=== PATIENT | male | born 1995 ===

== ENCOUNTER 2018-02-06 13:42 | Emergency (ER) | payer OTHER ==
[2018-02-06 13:58] VITALS: BP 139/84
--- NOTE | 2018-02-06 14:11 | UC ---
Head Injury HPI - HPI Summary HPI Summary: 22 yo male presents with head injury. He tells me that 3 days ago he was wrestling with his friends on the grass and was hit in the head a few times. No LOC. The next day he noticed that he had a slight headache, was easily irritable , and had trouble concentrating. He has been studying intently the last 2 days for an exam he had this morning, but his symptoms have persisted after the completion of his exam - prompting his visit to . He has not taken anything for his discomfort. Denies vision changes, dizziness, neck pain, numbness, tingling, trouble word finding, limb ataxia, SOB, chest pain, n/v. - History Of Current Complaint Chief Complaint: UCHeadInjury Stated Complaint: HEAD INJURY Time Seen by Provider: 02/06/18 14:10 Hx Obtained From: Patient Onset/Duration: Sudden Onset Severity Currently: None Pain Intensity: 0 Pain Scale Used: 0-10 Numeric - Allergies/Home Medications Allergies/Adverse Reactions: Allergies Allergy/AdvReac Type Severity Reaction Status Date / Time No Known Allergies Allergy Verified 02/06/18 13:58 Home Medications: Home Medications Ibuprofen TAB* [Advil TAB*] 600 mg PO ONCE PRN 02/06/18 [History Confirmed 02/06] Melatonin 1 mg PO BEDTIME PRN 02/06/18 [History Confirmed 02/06/18] PMH/Surg Hx/FS Hx/Imm Hx - Additional Past Medical History Additional PMH: None - Surgical History Surgical History: None - Family History Known Family History: Positive: None - Social History Occupation: Student Lives: Dormitory/Roommates Alcohol Use: Weekly Substance Use Type: None Smoking Status (MU): Never Smoked Tobacco Review of Systems All Other Systems Reviewed And Are Negative: Yes Constitutional: Positive: Negative Skin: Positive: Negative Eyes: Positive: Negative ENT: Positive: Negative Respiratory: Positive: Negative Cardiovascular: Positive: Negative Gastrointestinal: Positive: Negative Neurovascular: Positive: Negative Musculoskeletal: Positive: Negative Neurological: Positive: Headache Psychological: Positive: Negative Physical Exam - Summary Physical Exam Summary: GENERAL: NAD. WDWN. No pain distress. SKIN: No rashes, sores, ulcers, masses, lesions. HEENT: Head: AT/NC. No arriaza's sign or raccoon eyes. Eyes: PERRLA. EOM intact. Conjunctiva clear without inflammation or discharge. Ears: Hearing grossly normal. TMs intact, no bulging, erythema, or edema. NECK: Supple. Nontender. No lymphadenopathy. CHEST: CTAB. No r/r/w. No accessory muscle use. Breathing comfortably and in no distress. CV: RRR. Without m/r/g. Pulses intact. Brisk cap refill. ABDOMEN: Soft. NTTP. No distention or guarding. No CVA tenderness. Bowel sounds present MSK: FROM in B/L UEs and LEs with symmetric strength. NEURO: A&Ox3. 3 word recall, remote, recent memory, ability to follow 2-step directions, and attention intact. CN: II: Peripheral qiu intact. Vision normal. III, IV, : EOMI. No nystagmus. PERRLA. V: Sensations intact and symmetric. Opens mouth and clenches teeth. VII: No facial asymmetry. Forehead wrinkles. Grins, shuts eyes, frowns, puffs cheeks. VIII: Hearing intact to finger rub. IX, X: Swallows and coughs. Uvula midline. XI: Shrugs shoulders. Turns head against resistance. XII: No tongue deviation Kavrul-re-saeg are intact. Gait with normal base. Romberg: maintains balance, no pronator drift. Normal speech. No facial drooping. PSYCH: Age appropriate behavior. Triage Information Reviewed: Yes Vital Signs: Initial Vital Signs Temp 98.3 F 02/06/18 13:50 Pulse 72 02/06/18 13:50 Resp 14 02/06/18 13:50 BP 139/84 02/06/18 13:50 Pulse Ox 98 02/06/18 13:50 Vital Signs Reviewed: Yes Head Injury Course/Dx - Course Course Of Treatment: Discussed obtaining CT with pt. Will not get CT at this time as pt's exam is WNL and his injury was 3 days ago. Suspect mild concussion. Advised to refrain from activities that worsen his symptoms and practice mental and physical rest. If he develops an increasing headache, vision changes, n/v to go to the ER immediately. Pt voiced understanding and is agreeable with the plan. - Differential Dx/Diagnosis Provider Diagnoses: Head injury Discharge - Sign-Out/Discharge Documenting (check all that apply): Patient Departure All imaging exams completed and their final reports reviewed: No Studies - Discharge Plan Condition: Stable Disposition: HOME Patient Education Materials: Concussion (ED), Head Injury (ED) [facility] [Primary Care Provider] - Additional Instructions: If you develop a fever, shortness of breath, chest pain, new or worsening symptoms - please call your PCP or go to the ED. Your blood pressure was high at todays visit. Please see your primary provider within 4 weeks for recheck and re-evaluation. 1) May take ibuprofen or tylenol for your discomfort 2) If you perform activities that involve mental or physical exertion that worsen your symptoms - please refrain from those activities until you are symptom free - Billing Disposition and Condition Condition: STABLE Disposition: Home
== END 2018-02-06 14:26 | disposition home or self-care (01) ==
LOC: UCEAST 13:42
DX: S09.90XA Unspecified injury of head, initial encounter (principal); W50.0XXA Accidental hit or strike by another person, initial encounter; Y93.72 Activity, wrestling; Y92.9 Unspecified place or not applicable; Y99.8 Other external cause status
CPT/HCPCS: 99201; G0463